=== PATIENT | female | born 1995 | race Hispanic/Latino ===

== ENCOUNTER 2021-10-26 15:48 | Day surgery (SDC) | payer OTHER ==
[2021-10-26 16:19] VITALS: BMI 32.5
[2021-10-26] MEDS ORDERED: hydrALAZINE 20 MG/ML VIAL SLOW IVP PRN (17:33)
== END 2021-10-26 18:05 | disposition home or self-care (01) ==
LOC: CSHLD/OP 15:48
PROVIDERS: ATTEND Obstetrics & Gynecology
DX: O36.8130 Decreased fetal movements, third trimester, not applicable or unspecified (principal); Z3A.39 39 weeks gestation of pregnancy
CPT/HCPCS: 99282

== ENCOUNTER 2021-11-08 14:19 | Outpatient (CLI) | payer OTHER | END 2021-11-08 14:20 | disposition home or self-care (01) | LOC: CSHLAB 14:19 | PROVIDERS: ATTEND Advanced Practice Midwife | DX: Z20.822 Contact with and (suspected) exposure to COVID-19 (principal) | CPT/HCPCS: 87811 ==

== ENCOUNTER 2021-11-11 09:02 | Inpatient (IN) | payer OTHER ==
[2021-11-12] MEDS ORDERED: Diphenoxylate HCl/Atropine Tablet PO PRN ×2 (13:05)
[2021-11-12] MEDS ORDERED: hydrALAZINE 20 MG/ML VIAL SLOW IVP PRN (13:05)
[2021-11-12] MEDS ORDERED: Ibuprofen 800 MG TAB PO PRN (13:05)
[2021-11-12] MEDS ORDERED: HYDROcodone/Acetaminophen 5/325 mg Tablet PO PRN ×2 (13:05)
[2021-11-12] MEDS ORDERED: Methylergonovine 0.2 MG/ML VIAL IM PRN (13:05)
[2021-11-12] MEDS ORDERED: Carboprost 250 MCG/ML AMP IM PRN (13:05)
[2021-11-12] MEDS ORDERED: Misoprostol 200 MCG TAB PR PRN (13:05)
[2021-11-12] MEDS ORDERED: Promethazine HCl 25 MG/ML VIAL IM PRN (13:05)
[2021-11-12] MEDS ORDERED: Lidocaine 1% (PF) 30 ML VIAL SC PRN (13:05)
[2021-11-12] MEDS ORDERED: Ondansetron PF 4 MG/2 ML Vial IVP PRN (13:05)
[2021-11-12] MEDS ORDERED: NS w/ Oxytocin 30 units 500 ML IV SCH (23:59)
[2021-11-13 00:35] VITALS: BMI 32.5
[2021-11-13] MEDS: Lactated Ringer's 1,000 ML IV SCH ×2 (00:50→08:39)
[2021-11-13] MEDS ORDERED: NS w/ Oxytocin 30 units 500 ML IV SCH ×2 (01:00→17:37)
[2021-11-13 01:21] LABS: Hemoglobin 11.6 g/dL (12.0-15.5); Mean Corpuscular HGB CONC 32.9 g/dL (32.0-36.0); Mean Corpuscular Hemoglobin 27.8 pg (27.0-33.0); Mean Corpuscular Volume 84.4 fl (81.6-98.3); Mean Platelet Volume 9.8 fl (7.4-10.4); Platelet Count 313 10x3/uL (150-450); RBC Distribution Width 15.2 % (11.5-14.5); Red Blood Cell (RBC) Count 4.18 10x6/uL (3.90-5.03); White Blood Cell (WBC) Count 11.4 10x3/uL (3.5-10.5)
[2021-11-13] MEDS: Misoprostol 100 MCG TAB VAG SCH ×3 (01:33→16:43)
[2021-11-13 01:55] LABS: Hep B Surf Ag Non-Reactive S/CO (NonReactive)
[2021-11-13 01:56] LABS: Syphilis Antibody Nonreactive (Nonreactive); Syphilis Antibody Index 0.04 S/CO (<1.00 Non-Reactive)
[2021-11-13 02:00] LABS: HBSAg Index 0.17 S/CO (0-0.99)
[2021-11-13] MEDS: Butorphanol Tartrate 1 MG/ML VIAL SLOW IVP PRN ×2 (08:39→11:02)
[2021-11-13] MEDS ORDERED: Methylergonovine 0.2 MG/ML VIAL ONE (15:30)
[2021-11-13] MEDS ORDERED: Misoprostol 200 MCG TAB ONE (15:30)
[2021-11-13] MEDS ORDERED: Milk Of Magnesia 30 ML UDCUP PO PRN (17:37)
[2021-11-13] MEDS ORDERED: Ondansetron PF 4 MG/2 ML Vial IVP PRN (17:37)
[2021-11-13] MEDS ORDERED: hydrALAZINE 20 MG/ML VIAL SLOW IVP PRN (17:37)
[2021-11-13] MEDS ORDERED: Boostrix 0.5 ML (Tdap) VIAL IM ONE (17:37)
[2021-11-13] MEDS ORDERED: HYDROcodone/Acetaminophen 5/325 mg Tablet PO PRN ×2 (17:37)
[2021-11-13] MEDS ORDERED: Benzocaine-Menthol 82.5 ML CAN TOP PRN (17:37)
[2021-11-13] MEDS ORDERED: Lanolin Ointment 7 GM TUBE TOP PRN (17:37)
[2021-11-13] MEDS ORDERED: Misoprostol 200 MCG TAB VAG PRN (17:37)
[2021-11-13] MEDS ORDERED: Methylergonovine 0.2 MG/ML VIAL IM PRN (17:37)
[2021-11-13] MEDS ORDERED: Bisacodyl 10 MG SUPP PR PRN (17:37)
[2021-11-13] MEDS ORDERED: Ferrous Sulfate 325 MG TAB PO SCH (18:00)
[2021-11-13] MEDS: Ibuprofen 800 MG TAB PO SCH (19:00)
[2021-11-13] MEDS: Docusate 100 MG CAP PO SCH (21:18)
[2021-11-14] MEDS: Ibuprofen 800 MG TAB PO SCH ×3 (02:01→18:22)
[2021-11-14] MEDS: Misoprostol 100 MCG TAB VAG SCH (04:07)
[2021-11-14] MEDS: Lactated Ringer's 1,000 ML IV SCH (04:07)
[2021-11-14] MEDS: Ferrous Sulfate 325 MG TAB PO SCH ×2 (07:41→16:42)
[2021-11-14] MEDS: Docusate 100 MG CAP PO SCH ×2 (08:37→21:35)
[2021-11-14] MEDS: Prenatal Vitamin 1 TAB PO SCH (08:38)
[2021-11-15] MEDS: Ferrous Sulfate 325 MG TAB PO SCH (07:46)
[2021-11-15] MEDS: Ibuprofen 800 MG TAB PO SCH ×2 (07:46→09:07)
[2021-11-15] MEDS: Docusate 100 MG CAP PO SCH (09:06)
[2021-11-15] MEDS: Prenatal Vitamin 1 TAB PO SCH (09:06)
[2021-11-15 09:39] VITALS: BP 104/58; TEMP 98
== END 2021-11-15 14:15 | disposition home or self-care (01) | DRG 807 ==
LOC: CSHLD 11-12 23:41 → CSHPP 11-13 18:02
PROVIDERS: ADMIT Obstetrics & Gynecology; ATTEND Obstetrics & Gynecology
PROC: 10E0XZZ Delivery of Products of Conception, External Approach (ICD-10-PCS; principal; 2021-11-13)
DX: O48.0 Post-term pregnancy (principal); Z37.0 Single live birth; Z3A.41 41 weeks gestation of pregnancy
CPT/HCPCS: 36415; 85027; 86780; 86850; 86900; 86901; 87340; J0595; J2590; J7120

== ENCOUNTER 2022-02-15 16:14 | Observation (INO) | payer OTHER ==
[~2022-02-15 16:14] MED LIST: Iopamidol 370 76% 100 ML VIAL ONE
[2022-02-15 16:43] LABS: #Basophils 0.1 10x3/uL (0.0-0.2); #Monocytes 1.3 10x3/uL (0.0-1.1); #Neutrophils 10.1 10x3/uL (1.5-8.4); %Basophils 0.3 % (0.0-2.0); %Eosinophils 6.8 % (0.0-6.0); %Lymphocytes 17.2 % (18.0-47.0); %Monocytes 8.3 % (0.0-10.0); %Neutrophils 67.1 % (40.0-75.0); Hemoglobin 13.8 g/dL (12.0-15.5); Mean Corpuscular Hemoglobin 28.4 pg (27.0-33.0); Mean Platelet Volume 8.9 fl (7.4-10.4); Platelet Count 403 10x3/uL (150-450); RBC Distribution Width 14.6 % (11.5-14.5); Red Blood Cell (RBC) Count 4.86 10x6/uL (3.90-5.03); White Blood Cell (WBC) Count 15.1 10x3/uL (3.5-10.5)
[2022-02-15] MEDS ORDERED: Dicyclomine 20 MG/2 ML VIAL ONE (16:47)
[2022-02-15] MEDS ORDERED: Ketorolac Tromethamine 30 MG/ML VIAL ONE (16:48)
[2022-02-15 16:52] LABS: BHCG - Serum Negative (NEGATIVE); Pregs Control Background? CLEAR/WHITE (CLR/WHITE); Pregs Control Bar Appear? YES (CONTROL BAR)
[2022-02-15 16:59] LABS: ALT (SGPT) 76 U/L (8-55); AST (SGOT) 99 U/L (5-34); Albumin 4.7 g/dL (3.5-5.0); Alkaline Phosphatase 102 U/L (40-110); Anion Gap 14 mmol/L (10-20); BUN (Urea Nitrogen) 14 mg/dL (7.0-18.7); Bilirubin, Total 0.6 mg/dL (0.2-1.2); Calc. Creatinine Clearance 0 mL/min (70-130); Carbon Dioxide 24 mmol/L (22-29); Chloride 106 mmol/L (98-107); Estimated GFR 104; Globulin 3.8 g/dL (2.4-3.5); Glucose 106 mg/dL (70-105); Lipase 34 U/L (8-78); Potassium 4.2 mmol/L (3.5-5.1); Protein, Total 8.5 g/dL (6.0-8.3); Sodium 140 mmol/L (136-145)
[2022-02-15] MEDS ORDERED: Fentanyl 100 MCG/2 ML VIAL ONE (17:49)
[2022-02-15] MEDS ORDERED: Levofloxacin 500 mg/D5W 100 ml Premix Bag ONE (18:28)
[2022-02-15 18:56] LABS: SARS-CoV-2 NAA Rapid Test Not Detected (NotDetected)
[2022-02-15] MEDS ORDERED: FLU VACC QS2022-23(6MOS UP)/PF 60 MCG/0.5 ML SYRINGE IM ONE (20:45)
[2022-02-15] MEDS ORDERED: Prevnar 13-Val Conj/PF 0.5 ML SYRINGE IM ONE (20:45)
[2022-02-15] MEDS ORDERED: Morphine 4 MG/ML VIAL SLOW IVP PRN (20:47)
[2022-02-15] MEDS ORDERED: Ketorolac Tromethamine 30 MG/ML VIAL IVP SCH (21:00)
[2022-02-15] MEDS ORDERED: Scopolamine 1.5 mg/72 hour Patch TOP SCH (21:00)
[2022-02-15 21:12] VITALS: BMI 27.0
[2022-02-15] MEDS: Lactated Ringer's 1,000 ML IV SCH (22:04)
[2022-02-16] MEDS ORDERED: Ketorolac Tromethamine 30 MG/ML VIAL IVP PRN ×2 (01:00→11:37)
[2022-02-16] MEDS: Lactated Ringer's 1,000 ML IV SCH (06:59)
[2022-02-16] MEDS ORDERED: Bupivacaine PF 0.5% 30 ML VIAL ONE (07:43)
[2022-02-16] MEDS ORDERED: Iopamidol 0 ML ONE (07:43)
[2022-02-16] MEDS ORDERED: EPINEPHrine 1 MG/ML AMP ONE (07:43)
[2022-02-16] MEDS ORDERED: Dexmedetomidine 200 MCG/2 ML VIAL ONE (08:57)
[2022-02-16] MEDS ORDERED: SUGAMMADEX SODIUM 200 MG/2 ML VIAL ONE (08:58)
[2022-02-16] MEDS ORDERED: Ketorolac Tromethamine 30 MG/ML VIAL IVP SCH (09:30)
[2022-02-16] MEDS ORDERED: Midazolam HCl 2 mg/2 ml Vial ONE (10:06)
[2022-02-16] MEDS ORDERED: PROPOFOL 20 ML ONE (10:35)
[2022-02-16] MEDS ORDERED: Fentanyl 100 MCG/2 ML VIAL ONE (10:35)
[2022-02-16] MEDS ORDERED: Dexamethasone 4 mg/ml Vial ONE (10:39)
[2022-02-16] MEDS ORDERED: Ondansetron PF 4 MG/2 ML Vial ONE (10:39)
[2022-02-16] MEDS ORDERED: PHENYLEPHRINE-NS 100 MCG/ML 10 ML SYRINGE ONE (11:06)
[2022-02-16] MEDS ORDERED: Glycopyrrolate 0.2 MG/ML 5 ML SYRINGE ONE (11:21)
[2022-02-16] MEDS ORDERED: Acetaminophen 500 MG TAB PO PRN (11:35)
[2022-02-16] MEDS ORDERED: traMADol HCl 50 MG TAB PO PRN (11:35)
[2022-02-16 16:07] VITALS: BP 105/69; TEMP 98.6
[2022-02-21] MEDS ORDERED: traMADol HCl 50 MG TAB PO PRN (10:00)
[2022-02-21] MEDS ORDERED: Ibuprofen 600 MG TAB PO PRN (10:00)
== END 2022-02-16 15:50 | disposition home or self-care (01) ==
LOC: CSHERS 16:14 → CSHTELE 20:05
PROVIDERS: ADMIT Specialist; ATTEND Specialist
PROC: 0FT44ZZ Resection of Gallbladder, Percutaneous Endoscopic Approach (ICD-10-PCS; principal; 2022-02-16)
DX: K80.10 Calculus of gallbladder with chronic cholecystitis without obstruction (principal); Z20.822 Contact with and (suspected) exposure to COVID-19
CPT/HCPCS: 74177; 76705; 80053; 83690; 84703; 85025; 88304; 93005; 96372; 96374; 96375; 96376; C1713; G0378; J0171; J1100; J1885; J1956; J2250; J2405; J2704; J3010; J7120; Q9967; S0020; U0002